=== PATIENT | male | born 1990 | race Caucasian/White ===

== ENCOUNTER 2021-08-26 21:40 | Emergency (ER) | payer OTHER ==
[~2021-08-26] VITALS: Ht 172.7 cm; Wt 70.3 kg
[2021-08-26] MEDS ORDERED: NAPR-1009 PO (23:44)
[2021-08-26] MEDS ORDERED: OXYC5TAB3 PO (23:44)
[2021-08-26] MEDS ORDERED: oxyCODONE/APAP (5/325 MG) 1 UDTAB TABLET ONE (23:55)
[2021-08-27] MEDS ORDERED: oxyCODONE/APAP (5/325 MG) 1 UDTAB TABLET PO ONE
[2021-08-27 00:04] VITALS: BP 128/68
== END 2021-08-27 00:09 | disposition home or self-care (01) ==
LOC: ER 21:40
DX: M25.422 Effusion, left elbow (principal); M25.522 Pain in left elbow; Z79.899 Other long term (current) drug therapy; W01.0XXA Fall on same level from slipping, tripping and stumbling without subsequent striking against object, initial encounter; Y93.89 Activity, other specified; Y92.89 Other specified places as the place of occurrence of the external cause; Y99.0 Civilian activity done for income or pay
CPT/HCPCS: 73080-TC